=== PATIENT | female | born 1990 | race Caucasian/White ===

== ENCOUNTER 2024-06-15 15:45 | Outpatient (CLI) | payer OTHER, SELFPAY ==
--- NOTE | 2024-06-15 | US_ITS ---
EXAM: BIOPHYSICAL PROF W/O NON STRES (USBIOWO) 06/15/2024 CLINICAL HISTORY: LATE IN OFFICE. Reportedly 31 weeks and 1 day by previously established dates. COMPARISON: None. TECHNIQUE: A limited transabdominal obstetrical ultrasound was performed to determine biophysical profile score. FINDINGS: Gravid uterus with a single fetus. Breathing movement: 2 Gross Body movement: 2 Tone: 2 Qualitative Amniotic Fluid: 2 Amniotic Fluid Index: 13.0 (normal 5-25), deepest vertical pocket 3.5 (normal 2-8). presentation: Cephalic. heart rate: Present, 143 bpm. Placenta: Anterior fundal and not low-lying. US/Biophysical Prof W/O Non Stres IMPRESSION: 1. Biophysical Profile Score of 8 out of a possible 8. 2. Additional description as above. Reading Location: [id number]
[2024-06-15 16:00] VITALS: BMI 41.1
[2024-06-15 16:07] VITALS: BP 115/74; PULSE 96; RESP 16; TEMP 36.6
--- NOTE | 2024-06-15 18:25 | OB.TRI.NOTE ---
HPI - General General Date of Admission: 06/15/24 Date of Service: 06/15/24 Chief Complaint: Non reactive NST in office HPI Narrative PAOLA PEDROZA, is a 34 F who presents from the office. Unable to obtain an adequate HR tracing in office. Sent for [facility] 09/25 Maternal Data Information CONRAD Calculator Estimated Delivery Date Method Current WG Current Estimate 07/30/24 Manual 33w 5d Final CONRAD: 07/30/24 Gestational age: 33+5 PFSH PFSH Home Medications ?Medication ?Instructions ?Recorded ?Last Taken ?Type vit no.95-ferrous 1 tab PO DAILY 06/15/24 06/15/24 09:00 History fumarate 28 mg-folic acid 800 mcg 1 TAB tablet () Allergy/AdvReac Type Severity Reaction Status Date / Time No Known Allergies Allergy Verified 06/15/24 16:01 Assessment & Plan (1) GDM (gestational diabetes mellitus), class A1: (2) Previous section complicating : (3) AMA (advanced maternal age) multigravida 35+: QUALIFIERS: Trimester: third trimester Qualified Code(s): O09.523 - Supervision of elderly multigravida, third trimester (4) 31 weeks gestation of : PLAN: Plan [facility] 09/25
== END 2024-06-15 17:03 | disposition home or self-care (01) ==
LOC: WPOUT 15:53 → WP 15:53
PROVIDERS: Referring Provider Obstetrics & Gynecology; Visit Provider Obstetrics & Gynecology
DX: O09.523 Supervision of elderly multigravida, third trimester (principal); O24.410 Gestational diabetes mellitus in pregnancy, diet controlled; O34.219 Maternal care for unspecified type scar from previous cesarean delivery; Z3A.31 31 weeks gestation of pregnancy
CPT/HCPCS: 59025; 59050; 76819; 99221; G0378

== ENCOUNTER 2024-07-16 21:15 | Outpatient (CLI) | payer OTHER, SELFPAY ==
[2024-07-16 21:32] VITALS: BP 132/87; PULSE 96
[2024-07-16 21:48] VITALS: BP 131/79; PULSE 100
[2024-07-16 22:03] VITALS: BP 129/78; PULSE 93
[2024-07-16 22:17] VITALS: BP 133/84; PULSE 94
--- NOTE | 2024-07-16 22:24 | OB.TRI.NOTE ---
HPI - General General Date of Service: 07/16/24 Chief Complaint: shortness of breath and elevated BP HPI Narrative PAOLA PEDROZA, is a 34 F who presents c/o SOB, noted today. Has with minimal position changes. No cough, fever. At home checked BP 160/90s> Has felt off today. No h/o HTN or preeclampsia w/ previous pregnancies. NO NICHOLS or visual changes. Some epigastric pain but associates it w/ the heartburn she has had. No VB/LOF/ctxs. Some lower abd. pain w/ position changes. Good FM. GDM- reports BS well controlled Maternal Data Information CONRAD Calculator Estimated Delivery Date Method Current WG Current Estimate 07/30/24 Manual 38w 0d Final CONRAD: 08/16/24 Gestational age: 35 4/7 PFSH PFSH Home Medications ?Medication ?Instructions ?Recorded ?Last Taken ?Type vit no.95-ferrous 1 tab PO DAILY 06/15/24 06/15/24 09:00 History fumarate 28 mg-folic acid 800 mcg 1 TAB tablet () Allergy/AdvReac Type Severity Reaction Status Date / Time No Known Allergies Allergy Verified 07/16/24 22:22 Physical Exam Narrative General: Awake alert, appears short of breath with minimal position changes. Takes deep breaths in the middle of the conversation. Skin warm dry and intact Extremities 1+ upper extremity edema, 2+ lower extremity edema, 2+ DTRs no clonus Neuro: Cranial nerves II through XII intact and symmetrical Abdomen: Soft nondistended, gravid no tenderness over fundus, large pannus Assessment & Plan (1) High risk multigravida in third trimester: (2) 35 weeks gestation of : (3) AMA (advanced maternal age) multigravida 35+: QUALIFIERS: Trimester: third trimester Qualified Code(s): O09.523 - Supervision of elderly multigravida, third trimester (4) GDM (gestational diabetes mellitus), class A1: (5) Shortness of breath: (6) Elevated blood pressure affecting in third trimester, antepartum: PLAN: Plan I discussed with the patient and her partner risk benefits and alternatives to CT of the chest to rule out PE. Patient does have significant shortness of breath. This may be due to her habitus and late gestational age in . Could also be due to preeclampsia. Blood pressures are elevated for her but not in the gestational hypertension diagnostic range. Will check preeclampsia labs. Desires to proceed with CT of chest.
--- NOTE | 2024-07-16 22:29 | CT_ITS ---
PROCEDURE: CTA CHEST W/WO CONTRAST 07/16/2024 REASON FOR EXAM: SHORTNESS OF BREATH IN , RULE OUT PE TECHNIQUE: CTA axial imaging of the chest with intravenous contrast. Multiplanar and multisequence images were obtained. PATIENT PREPARATION: Per protocol One or more dose reduction techniques were used (e.g., Automated exposure control, adjustment of the mA and/or kV according to patient size, use of iterative reconstruction technique). RADIATION DOSE SUMMARY: CTDlvol: 16.62+ 15.82 mGy DLP: 582.25 mGycm COMPARISON: None. FINDINGS: Hardware: None. Lymph nodes: Unremarkable. Heart: Unremarkable. Thoracic Aorta: No thoracic aortic aneurysm or dissection. Pulmonary Vessels: No evidence of acute pulmonary emboli through the major subsegmental branches. Most Proximal Level of Embolus (if embolus present): None. Lungs and Airways: Clear. Pleura: No pleural effusion. No pneumothorax. Upper Abdomen: Visualized portions of the upper abdominal viscera are unremarkable. Bones: Bone windows are unremarkable. CT/CTA Chest W/WO Contrast IMPRESSION: NORMAL CHEST CTA. NO EVIDENCE OF ACUTE PULMONARY EMBOLISM. Reading Location: [place] [id number]
[2024-07-16 22:33] VITALS: BP 128/82; PULSE 100
[2024-07-16 22:54] LABS: Hematocrit 34.4 % (37-47); Mean Corp Hgb Conc 34.9 g/dL (32-36); Mean Corpuscular Hgb 31.5 pg (27.0-32.0); Mean Corpuscular Volume 90.3 fL (81-99); Mean Platelet Vol. 10.3 fl (6.2-12.0); Platelet Count 189 K/mm3 (150-450); RBC Distribution Width CV 13.1 % (11.6-14.6); RBC Distribution Width SD 42.8 fl (35.1-43.9); Red Blood Count 3.81 M/mm3 (4.2-5.4); White Blood Count 9.5 K/mm3 (4.4-11.0)
[2024-07-16 23:17] LABS: AST(SGOT) 19 U/L (<=31); Alanine Aminotransfer ALT/SGPT 10 U/L (<=34); Creatinine, Serum 0.51 mg/dL (0.70-1.20); EST Glomerular Filtration Rate 124 (>60)
[2024-07-16 23:54] LABS: Protein, Urine (Random) 10.7 mg/dL (0.0-12.0); Protein:Creat Ratio 156 mg/g CRE (0-200)
[2024-07-17 00:24] VITALS: BP 130/73; PULSE 80; PULSE 88; O2SAT 95
[2024-07-17 00:28] VITALS: PULSE 86; O2SAT 94
[2024-07-17 00:39] VITALS: BP 122/64; PULSE 88
[2024-07-17 00:55] VITALS: BMI 42.7
== END 2024-07-17 00:55 | disposition home or self-care (01) ==
LOC: WPOUT 21:16 → WP 21:16
PROVIDERS: Referring Provider Obstetrics & Gynecology; Visit Provider Obstetrics & Gynecology
DX: O26.893 Other specified pregnancy related conditions, third trimester (principal); R03.0 Elevated blood-pressure reading, without diagnosis of hypertension; R06.02 Shortness of breath; O09.523 Supervision of elderly multigravida, third trimester; O24.410 Gestational diabetes mellitus in pregnancy, diet controlled; Z3A.35 35 weeks gestation of pregnancy
CPT/HCPCS: 36415; 59025; 59050; 71275; 82565; 82570; 84156; 84450; 84460; 84550; 85027; 99221; Q9967; G0378

== ENCOUNTER 2024-08-03 18:15 | Inpatient (IN) | payer OTHER, SELFPAY ==
[2024-08-03] VITALS (21 sets, daily range): BP systolic 113–153; BP diastolic 60–90; PULSE 75–99; RESP 13–18; TEMP 36.3–37.3; O2SAT 91–99; BMI 44.9
[2024-08-03 18:03] LABS: ROM Internal Control Test YES-OK TO RESULT pt. (Internal QC)
[2024-08-03 18:06] LABS: ROM Patient Test POSITIVE (Negative); Record Kit Lot#, ROM+ K3358
[2024-08-03 18:55] LABS: Absolute Lymphocyte Count 1.57 X10^3/uL (0.83-4.51); Basophil# 0.03 X10^3/uL; Basophil% 0.4 % (0-1); Eosinophil# 0.09 X10^3/uL; Eosinophils% 1.1 % (0-5); Hematocrit 34.8 % (37-47); Hemoglobin 12.1 g/dL (12.0-15.0); Lymphocyte # 1.57 X10^3/ul (0.83-4.51); Lymphocyte % 18.7 % (19-41); Mean Corp Hgb Conc 34.8 g/dL (32-36); Mean Corpuscular Hgb 31.4 pg (27.0-32.0); Mean Corpuscular Volume 90.4 fL (81-99); Mean Platelet Vol. 10.2 fl (6.2-12.0); Monocyte# 0.63 X10^3/uL; Monocyte% 7.5 % (0-10); NRBC Flagged by Analyzer 0 % (0-5); Neutrophil # 5.97 X10^3/uL (2.7-7.7); Platelet Count 188 K/mm3 (150-450); RBC Distribution Width CV 13.2 % (11.6-14.6); RBC Distribution Width SD 43.2 fl (35.1-43.9); Red Blood Count 3.85 M/mm3 (4.2-5.4); White Blood Count 8.4 K/mm3 (4.4-11.0)
--- NOTE | 2024-08-03 19:00 | PCM.HP.OB ---
HPI - General General Date of Admission: 08/03/24 Date of Service: 08/03/24 Chief Complaint: SROM HPI Narrative PAOLA PEDROZA, is a 34 F who presents with SROM at home. No ctx, vb. Good FM. Maternal Data Information CONRAD Calculator Estimated Delivery Date Method Current WG Current Estimate 07/30/24 Manual 40w 4d PFSH PFSH Home Medications ?Medication ?Instructions ?Recorded ?Last Taken ?Type vit no.95-ferrous 1 tab PO DAILY 06/15/24 06/15/24 09:00 History fumarate 28 mg-folic acid 800 mcg 1 TAB tablet () Allergy/AdvReac Type Severity Reaction Status Date / Time No Known Allergies Allergy Verified 08/03/24 18:19 History Addt'l History: Delivery 2013 cord prolapse Delivery 2015 Vital Signs Vital Signs Vital Signs: 08/03/24 17:38 08/03/24 17:38 08/03/24 17:39 Pulse Rate 99 94 Blood Pressure 136/81 H BP Systolic 136 BP Diastolic 81 Pulse Ox 08/03/24 17:39 08/03/24 17:44 08/03/24 17:44 Pulse Rate 94 Blood Pressure BP Systolic BP Diastolic Pulse Ox 98 97 08/03/24 17:49 08/03/24 17:49 08/03/24 17:54 Pulse Rate 91 92 Blood Pressure BP Systolic BP Diastolic Pulse Ox 97 08/03/24 17:54 08/03/24 17:59 08/03/24 17:59 Pulse Rate 86 Blood Pressure BP Systolic BP Diastolic Pulse Ox 97 97 Weight Weight: 270 lb Body Mass Index (BMI) 44.9 Labs Labs Labs: Blood Type Pending Antibody Screen Pending Hct 34.8 % (37-47) L Hgb 12.1 g/dL (12.0-15.0) Syphilis Total Ab Pending GBS negative Assessment & Plan (1) 38 weeks gestation of : (2) GDM (gestational diabetes mellitus), class A1: PLAN: Diabetic protocol (3) Anxiety: (4) History of section: (5) History of : (6) Liver fibrosis: PLAN: Patient reports being told she has non alcoholic fatty liver disease and stage 2 liver fibrosis in the past. Saw a GI specialist in [place] 3 years ago. She states she has no records available of this. Per patient her levels improved after being on Ozempic. Will check CMP and coags on admission (7) Advanced maternal age (AMA) in : (8) SROM (spontaneous rupture of membranes): PLAN: Admit for SROM. H/o 1 prior C/S for cord prolapse and 1 successful 10 years ago. Discussed r/b/a TOLAC vs repeat C/S and patient desires TOLAC. Discussed Pitocin which the patient declines. Discussed risk of infection if prolonged rupture of membranes without labor. GBS negative. Cvx 3 cm on admission per RN. CEFM and admit for labor
[2024-08-03 19:21] LABS: Syphilis Antibodies Nonreactive (Nonreactive)
[2024-08-03 20:48] LABS: International Normalized Ratio 0.9; Partial Thromboplast Time 25.3 Seconds (24.1-36.2); Prothrombin Time (Protime)PT. 12.3 SECONDS (11.7-14.9)
[2024-08-03 21:25] LABS: ALB/GLOB Ratio 1.1 RATIO (0.9-2.4); AST(SGOT) 23 U/L (<=31); Alanine Aminotransfer ALT/SGPT 13 U/L (<=34); Albumin, Serum 3.5 g/dL (3.5-5.0); Alkaline Phosphatase 120 U/L (35-104); Anion Gap 14 (5-15); BUN 10 mg/dL (4-19); BUN/Creat Ratio 14.6 RATIO (10-20); Calcium,Total 9.6 mg/dL (7.6-11.0); Carbon Dioxide 18.4 mmol/L (21.0-32.0); Chloride 103 mmol/L (98-108); Creatinine, Serum 0.71 mg/dL (0.70-1.20); EST Glomerular Filtration Rate 112 (>60); Estimated Creatinine Clearance 143.85 ml/min (50-250); Globulin 3.2 g/dL (2.2-4.2); Glucose 105 mg/dL (70-99); Protein, Total 6.7 g/dL (5.9-8.4); Sodium Level 135 mmol/L (133-145); Total Bilirubin < 0.15 mg/dL (0.00-1.30)
[2024-08-03 21:54] LABS: Bedside Glucose 73 mg/dL (74-106)
[2024-08-03 21:54] LABS: Bedside Glucose 89 mg/dL (74-106)
[2024-08-03] MEDS: Lactated Ringers 1,000 ML 999 ML IV (22:45)
[2024-08-03 23:07] LABS: Bedside Glucose 80 mg/dL (74-106)
[2024-08-03] MEDS: fentaNYL-bupivacaine (epidural) 100 ML BAG EPIDURAL (23:43)
[2024-08-03] MEDS: Lactated Ringers 1,000 ML 50 ML IV (23:57)
[2024-08-04] VITALS (30 sets, daily range): BP systolic 101–140; BP diastolic 56–88; PULSE 68–126; RESP 16–18; TEMP 36.1–36.9; O2SAT 92–100
--- NOTE | 2024-08-04 02:50 | PCM.PN.BLA ---
Progress Note At bedside to check on patient. RN at bedside and patient receiving IVF bolus, and in hands and knees. Patient states she has been comfortable with epidural. She offers no complaints. Assessment & Plan Assessment/Plan (1) SROM (spontaneous rupture of membranes): (2) Advanced maternal age (AMA) in : (3) Liver fibrosis: (4) History of : (5) History of section: (6) Anxiety: (7) 38 weeks gestation of : (8) Non-reassuring heart rate or rhythm affecting management of mother: PLAN: FHT showing intermittent late and variable decelerations during labor. FHT then with an approximately 5 minute deceleration followed by variable and late decelerations. FHT deceleration 54 bpm while in the room. FHT now recovered to baseline 120 with mod gregorio. Patient has been declining internal monitoring during entire admission. Cervical exam now 5/60/-2. Discussed with patient non reassuring heart rate tracing and remote from delivery. Recommend section. Patient needed time to consider after discussion of r/b/a repeat section. All questions were answered and she felt well counseled. After discussion of risks, benefits and alternatives to a section the patient request to proceed with a repeat section. Pre op antibiotics ordered and patient prepped for OR.
[2024-08-04] MEDS: Cefazolin 3 GM in 0.9% Normal Saline (100mL Bag) 100 ML IV (03:13)
[2024-08-04] MEDS: Azithromycin 500 MG in 0.9% Normal Saline (250mL Bag) 250 ML 250 MG IV (03:17)
--- NOTE | 2024-08-04 04:35 | PLAC_PTH ---
PATIENT: PAOLA PEDROZA LOC: [facility] U#:[id number] AGE/SX: 34/F ROOM: [facility] RE08/03/[address]: Dr. Roxy Marx DO : 1990 BED: 1 DIS: 08/06/2024 SPEC #: [id number] RECD: 08/04/24 06:25 STATUS: NALINI CHAD #: [id number] JUAN: 08/04/24 04:[address]: Roxy Marx DEPT: SURGICAL PATHOLOGY RECD BY: Jah Zimmerman ENTERED: 08/04/24 09:08 SP TYPE: PLACENTA OT DR: No Primary Care Phys Tissues: A - Placenta, NOS Procedures: Surgery Specimen Level V HEADER OPERATION: Primary section PRE-OP DIAGNOSIS: distress TISSUE SUBMITTED: A- Placenta MICROSCOPIC DIAGNOSIS A. Placenta, primary Cesarian section: * Eccentrically inserted and trivascular umbilical cord without active inflammation * Marginally inserted membranes with an increased number of pigmented macrophages, consistent with meconium and without active inflammation * Mature (third trimester) placenta with an increased number of pigmented macrophages in the surface, consistent with meconium and without active inflammation MICROSCOPIC DESCRIPTION Slides are reviewed. GROSS DESCRIPTION A.? Received in formalin labeled with the patient's name and date of is a 259 g, 13.4 x 12.7 x 2.1 cm slightly irregular, ovoid placental disc.? The detached membranes are andrade-pink and edematous with green discoloration. The possibly tethered (0.7 cm from the surface), trivascular and hypocoiled umbilical cord measures 47.6 cm in length by approximately 1.0 cm in diameter and inserts eccentrically, 1.6 cm from the disc edge.? The surface is pink-purple to blue and edematous with detached amnion (approximately 95%).? The maternal surface is dark red with a diffusely torn and frayed appearance and loosely adherent blood clot along the periphery. Sectioning reveals dark red-brown, shaggy and spongy parenchyma with focal fibrin (<10%). ?[place]erson sections are submitted as follows: A1: Membrane rollA2: Umbilical cordA3: PlacentaA4: Placenta with fibrin SC 08/05/2024 CPT:02288
--- NOTE | 2024-08-04 04:37 | PCM.OPRPT ---
Problems Associated Problem List Diagnoses (1) Non-reassuring heart rate or rhythm affecting management of mother: (2) SROM (spontaneous rupture of membranes): (3) Advanced maternal age (AMA) in : (4) Liver fibrosis: (5) History of : (6) History of section: (7) Anxiety: (8) 38 weeks gestation of : Operative Report (Standard) Operative Information Date of Procedure: 08/04/24 Pre-Operative Diagnosis: 38 week gestation, SROM, history 1 prior section, AMA, obesity in , non reassuring heart tracing Post-Operative Diagnosis: As above Surgery/Procedure Performed: RLTCS via pfannenstiel incision wealth management manager: Yes Shade Cloth Finisher: Ainsley BAKER Tasks completed by perinatal breastfeeding assistant: Closing and Retracting Type of Anesthesia: Epidural Procedure Start Time: 03:19 Procedure Stop Time: 04:30 Select all DRAINS/GRAFTS/IMPLANTS that apply: None Special Medications: None Estimated Blood Loss: 1200 mL Fluids Replaced: 2500 mL Specimen collected: Yes Description of specimen(s) removed: Placenta Description of surgery: The patient was taken to the operating room where epidural anesthesia was found to be adequate. She was prepped and draped in the dorsal supine position with a leftward tilt. A Pfannenstiel skin incision was made with a scalpel through the prior incision site, and the incision was carried down to the underlying layer of fascia. The fascia was incised in the midline. The fascial incision was extended laterally using curved Elaine scissors. The fascia was tented off the rectus muscles both cephalad and caudad and dissected off the rectus muscles with a combination of blunt and sharp dissection. The fascia was dense and adherent to the rectus muscles. There was scarring in the midline of the rectus muscles. Nivia clamps were used to elevate the rectus muscles and a scalpel was used to create a small incision to separate the rectus muscles. The peritoneum was then identified. The peritoneum was then elevated using the Nivia clamps, and entered sharply using the scalpel. The peritoneal incision was extended with lateral traction, and the peritoneum was noted to be dense. The bowel was packed away from the incision site. A low transverse incision was made on the uterus with the scalpel. The uterine incision was extended with cephalad and caudad traction with meconium stained fluid noted. The head of the infant was elevated out of the pelvis in a flexed position, and the head and body of the infant were delivered through the hysterotomy. The cord was clamped and cut immediately and the viable male infant was handed off to the awaiting nursery staff. The uterus had clamped down. The placenta was delivered with manual extraction and was noted to be small appearing therefore sent to pathology for review. The uterus was cleared of all clot and debris. The uterus was unable to be exteriorized due to body habitus. Visibility was difficult due to body habitus and scarring/tight tissue, therefore an Florentin retractor was placed and the bowel re packed away from the incision site. A right cervical extension was noted to be bleeding. Ring forceps were placed along the extension and hysterotomy. 1-0 Vicryl was used to repair the hysterotomy along with the cervical extension in a running locked fashion. Several additional [id number] sutures were placed along the hysterotomy for hemostasis. The cervical extension was noted to be oozing. Hemablast was placed over the cervical extension and pressure applied. Hemostasis was then confirmed. The packing was removed and the Florentin retractor was removed. Rome was placed over the lower uterine segment and hysterotomy. The peritoneum was unable to be reapproximated. The subfascial space was noted to be hemostatic. The fascia was closed with STRATAFIX in a running fashion. The subcutaneous space was irrigated and noted to be hemostatic. The subcutaneous space was reapproximated with 3-0 Vicryl in a running fashion. The skin was closed with 4-0 Monocryl in a subcuticular fashion. A dressing was placed. Instrument, sharp, sponge counts were correct x 2 the patient was taken to the recovery in stable condition. Surgical Findings: Meconium stained fluid. Small appearing placenta and baby SGA. Apgars 8, 9. Adhesive disease noted of fascia, rectus, and peritoneum. Normal appearing uterus and bilateral adnexa. Complications Complications: No Admit VTE Documentation VTE Present on Admission: No VTE Mechan Device Prophylaxis: SCD's
[2024-08-04] MEDS: Oxytocin 15 Units/NS 250ml 15 UNITS/250 ML IV.SOLN 83 UNITS IV (05:00)
[2024-08-04 06:08] LABS: Bedside Glucose 123 mg/dL (74-106)
[2024-08-04] MEDS: 0.9% Saline Lock 10 ML Syringe IV (06:14)
[2024-08-04] MEDS: Ketorolac 30 MG/ML Syringe IV ×3 (06:15→18:31)
[2024-08-04 06:27] LABS: Pathology Specimen OB SEE PATHOLOGY REPORT
[2024-08-04] MEDS: Acetaminophen 500 MG Tablet 1000 MG PO ×3 (06:43→18:31)
[2024-08-04] MEDS: Lactated Ringers 1,000 ML 100 ML IV (07:12)
[2024-08-04] MEDS: Cefazolin 1 GM/50 ML BAG IV (07:12)
--- NOTE | 2024-08-04 09:35 | NURSING ---
2163 dr kong made aware of maternal heart rate 108-115 and fundus sitting one above umbilicus
--- NOTE | 2024-08-04 10:02 | PCM.PN.BLA ---
Progress Note pain well controlled, denies CP/SOB/lightheadednss. Physical Exam Narrative abd soft, nondistended, appropriately tender, bandage clean, dry an intact. Uterus below umbilicus 2 cm if pannus pulled up during exam. Did brief transabdominal US and bright white endometrial stripe noted pad w/ average lochia, no clots expressed w/ fundal massage Assessment & Plan Assessment/Plan (1) delivery delivered: PLAN: POD#0 s/p repeat c/s for nonreassuring FHTs, IUGR repeat cbc tomorrow routine care
[2024-08-04] MEDS: Senna/Docusate Sodium 1 Tablet PO (12:31)
[2024-08-04] MEDS: Enoxaparin 40 MG/0.4 ML Syringe SC (17:01)
--- NOTE | 2024-08-04 18:29 | NURSING ---
[address] kong made aware of maternal tachycardia 125-135 orders received
[2024-08-04] MEDS: Lactated Ringers 1,000 ML 999 ML IV (18:42)
[2024-08-04 18:54] LABS: Hematocrit 26.5 % (37-47); Hemoglobin 9.1 g/dL (12.0-15.0); Mean Corp Hgb Conc 34.3 g/dL (32-36); Mean Corpuscular Hgb 31.6 pg (27.0-32.0); Mean Platelet Vol. 10.2 fl (6.2-12.0); Platelet Count 145 K/mm3 (150-450); RBC Distribution Width CV 13.6 % (11.6-14.6); RBC Distribution Width SD 44.6 fl (35.1-43.9); Red Blood Count 2.88 M/mm3 (4.2-5.4); White Blood Count 10.3 K/mm3 (4.4-11.0)
--- NOTE | 2024-08-04 19:49 | PCM.PN.BLA ---
Progress Note Pain well controlled. Denies CP/SOB. Average lochia. Physical Exam Narrative skin warm, dry and intact abd- soft- mild distention, appropriately tender, no rebound or guarding. Fundus firm, same as this am. Difficult exam due to pannus size. Bandage clean, dry and intact. Pad w/ moderate dark red lochia, minimal blood expressed w/ fundal massage. Brief Tvus and transabdominal US done, technically difficult due to pannus size but I do see a bright white endometrial stripe and when I examine the cervix minimal blood returns, no clots appreciated. Assessment & Plan Assessment/Plan (1) delivery delivered: PLAN: Plan tachycardia- HGB decreased,a ppropriate for blood loss in surgery but some tachycardia. Monitor closely. Recheck CBC in am or later if further changes. Given 500 cc IVF bolus. Urine output borderline. Monitor closely. At this point if PP hemorrhage I am more concerned may be intraperitoneal than uterine atony/collection. Findings/concerns reviewed with patient and her . Cont. IVF and ramírez tonight and monitor closely.
--- NOTE | 2024-08-04 20:01 | NURSING ---
1930 Dr. Dickerson in room to perform vaginal ultrasound to check for bleeding. Dr. Dickerson sates to leave ramírez catheter in overnight, draw a CBC in the morning, call if heart rate gets worse or if urine output is low. This RN verbalized understanding.
[2024-08-04] MEDS: Famotidine 20 MG Tablet 40 MG PO (21:36)
[2024-08-05] VITALS (16 sets, daily range): BP systolic 106–129; BP diastolic 58–80; PULSE 104–122; RESP 16; TEMP 36.1–36.8; O2SAT 95–99
[2024-08-05] MEDS: Acetaminophen 500 MG Tablet 1000 MG PO ×4 (00:11→20:31)
[2024-08-05] MEDS: Ketorolac 30 MG/ML Syringe IV (00:30)
[2024-08-05] MEDS: Enoxaparin 40 MG/0.4 ML Syringe SC ×2 (03:34→15:45)
[2024-08-05] MEDS: Ibuprofen 600 MG Tablet PO ×3 (06:02→20:30)
[2024-08-05 06:21] LABS: Hematocrit 21.5 % (37-47); Hemoglobin 7.4 g/dL (12.0-15.0); Mean Corp Hgb Conc 34.4 g/dL (32-36); Mean Corpuscular Hgb 31.9 pg (27.0-32.0); Mean Corpuscular Volume 92.7 fL (81-99); Mean Platelet Vol. 10.1 fl (6.2-12.0); Platelet Count 125 K/mm3 (150-450); RBC Distribution Width CV 13.7 % (11.6-14.6); RBC Distribution Width SD 45.8 fl (35.1-43.9); Red Blood Count 2.32 M/mm3 (4.2-5.4); White Blood Count 8.9 K/mm3 (4.4-11.0)
[2024-08-05 06:39] LABS: Bedside Glucose 107 mg/dL (74-106)
[2024-08-05] MEDS: DiphenhydrAMINE 25 MG Capsule 50 MG PO (06:58)
--- NOTE | 2024-08-05 09:10 | PCM.PN.OB ---
Subjective Subjective Doing well per patient and nursing staff. Ambulating and taking PO without difficulty. Voiding and passing flatus. Pain controlled. , services for assistance. Denies headache, visual changes, chest pain, shortness of breath, leg pain or increased bleeding. Lochia normal. Objective Data Objective Data Vital Signs: Vital Signs Temp Pulse Resp BP Pulse Ox O2 Del Method 97.9 F 115 H 16 118/72 97 Room Air 08/05/24 08:48 08/05/24 08:48 08/05/24 08:48 08/05/24 08:48 08/05/24 08:48 08/05/24 08:48 Oxygen Delivery Method Room Air Weight: 270 lb Body Mass Index (BMI) 44.9 Intake & Output: Intake and Output for Last 24 Hours 08/03/24 08/04/24 08/05/24 23:59 23:59 23:59 Intake Total 1000 / 1000 2626.99 / 2626.99 500.5 / 500.5 Output Total 2400 / 2400 1350 / 1350 Balance 1000 / 1000 226.99 / 226.99 -849.5 / -849.5 Lab / Micro Data 08/05/24 16:51 08/03/24 20:00 Labs: Laboratory Results - last 24 hr 08/03/24 18:40: Crossmatch See Detail 08/04/24 18:45: WBC 10.3, RBC 2.88 L, Hgb 9.1 L, Hct 26.5 L, MCV 92.0, MCH 31.6, MCHC 34.3, RDW Std Deviation 44.6 H, RDW Coeff of Sanjay 13.6, Plt Count 145 L, MPV 10.2 08/05/24 06:05: POC Glucose 107 H 08/05/24 06:09: WBC 8.9, RBC 2.32 L, Hgb 7.4 L, Hct 21.5 L, MCV 92.7, MCH 31.9, MCHC 34.4, RDW Std Deviation 45.8 H, RDW Coeff of Sanjay 13.7, Plt Count 125 L, MPV 10.1 ROS Constitutional Constitutional: Reports systems reviewed and no addt'l complaints, except as documented; Denies headache(s) Eyes Eyes: Denies acute decrease in peripheral vision, blurry vision or change in vision ENT HEENT: Reports systems reviewed and no addt'l complaints, except as documented Cardiovascular Cardiovascular: Denies chest pain or dizziness Respiratory/Chest Respiratory/Chest: Denies cough, dyspnea, dyspnea on exertion, shortness of breath at rest or shortness of breath with exertion Gastrointestinal Gastrointestinal: Denies abdominal pain, diarrhea, nausea or vomiting Genitourinary Genitourinary: Denies abdominal discomfort Musculoskeletal Musculoskeletal: Denies limited range of motion Integumentary Integumentary: Reports systems reviewed and no addt'l complaints, except as documented Neurologic Neurologic: Reports systems reviewed and no addt'l complaints, except as documented Psychiatric Psychiatric: Reports systems reviewed and no addt'l complaints, except as documented Endocrine Endocrinology: Reports systems reviewed and no addt'l complaints, except as documented Hematologic/Lymphatic Hematologic/Lymphatic: Reports systems reviewed and no addt'l complaints, except as documented Allergic/Immunologic Allergic/Immunologic: Reports systems reviewed and no addt'l complaints, except as documented Physical Exam Const alert and oriented x3 General Appearance: cooperative Orientation / Consciousness: awake, oriented to person, oriented to place and oriented to time Exam Limitations: no limitations HEENT normocephalic Head and Scalp: normal to inspection, normocephalic and atraumatic Face and Sinus: normal facial exam Eyes General Eye: normal appearance of both eyes Neck full ROM Chest Chest: symmetrical chest wall rise Resp normal respiratory effort and normal air movement Auscultation: clear to auscultation bilaterally Cardio regular rate, regular rhythm, S1 normal heart sound, S2 normal heart sound, no murmurs, no rub, no gallops and no clicks GI normal to inspection, nondistended, normoactive bowel sounds and non-tender GI Narrative: Fundus firm 2 below U appearance of the vagina normal Narrative: Normal lochia rubra Bladder / Kidney Exam: no CVA tenderness Back/Spine normal ROM Extremity normal to inspection and full ROM Skin no rashes or lesions noted Neuro oriented x3, CN's II-XII intact bilaterally and moves all extremities Sensorium / Orientation: awake, alert and oriented to person Motor Exam: clonus absent Deep Tendon Reflexes: Rt Patellar (L4): 2+ and Lt Patellar (L4): 2+ Assessment & Plan (1) delivery delivered: (2) Elevated blood pressure affecting in third trimester, antepartum: (3) AMA (advanced maternal age) multigravida 35+: QUALIFIERS: Trimester: third trimester Qualified Code(s): O09.523 - Supervision of elderly multigravida, third trimester PLAN: Plan 1) Routine care, PPD #2 2) Vitals signs stable 3) Pain controlled 4) , services PRN 5) D/C home 6) Follow up for Bp check 7) Follow up in 2 weeks and 6 weeks
[2024-08-05] MEDS: Famotidine 20 MG Tablet 40 MG PO ×2 (11:53→20:30)
[2024-08-05] MEDS: Senna/Docusate Sodium 1 Tablet PO (11:53)
--- NOTE | 2024-08-05 14:41 | CASEMGMT ---
Social Work Assessment Labor and Delivery Unit Patient Address: [address] [facility] ([facility] [place] [address] Phone number: [phone] Date of Referral: 08/04/24 Time of Referral:? 742 Referred By: Roxy Marx Date of Intervention: ?08/05/24? Time of Intervention:? 1114 Reason for Referral:? Mental health Sw completed chart review and acknowledges social work consult due to maternal mental health history. Sw presented to bedside and met with mother of baby (MARCELINA Velazco). Sw explained reason for sw involvement and completed psychosocial assessment. History obtained from: medical records, MOB Household composition: Currently residing in the family home is MOB, father of baby (ELOISA Victor), their two older children: Suleiman (12) and Payton (10). baby to be included in residence when ready for discharge. MOB denies any problems with housing, stating their house is safe and secure. Patient's parent/guardian status:? ?MOB states that she and PAULA have been together for 12 years after meeting each other online. [place] baby is third baby for parents together. MOB denies problems or concerns with domestic violence or intimate partner violence. Medical History: ?GREG is 34 year old female who is 4, para 2- now 3 following labor and delivery. GREG received routine care during with [facility]. GREG presented to hospital and delivered baby via repeat at 38 weeks gestation. Baby boy, named Jayesh Norwood, was born weighing 5lb and 15oz with apgars of 8 and 9 at one and five minutes of life, respectfully. GREG is pumping and providing milk for her baby, and states that baby will be followed by Dr. Dey for pediatrics. Educational Status:? Both parents graduated from high school and attended some college. MOB denies problems with reading, learning or comprehension. Financial Status: Neither parent is employed at this time. MOB states that PAULA is retired from the and they are living off of his benefits. Supplies:?? All necessary baby supplies obtained, including: car seat, safe sleep space, clothes, diapers and wipes. Childcare/Caregiver(s):?MOB states that she will be the primary caregiver to baby, along with FOB. Transportation:??Both parents have their drivers license and reliable means of transportation. NO barriers. Programs/Agencies Involved: ???MOB denies being connected to community resources that assist her financially. MOB is connected to insurance provided to the family through [employer] benefits of [facility]. Children Services/Legal Issues:???MOB denies prior involvement with Children's Services, no issues or concerns warranting referral to be made at this time. Behavioral Health Issues: ??Mental Health History: MOB admits to having anxiety, and states that it is general mom stuff. MOB elaborates and states that currently they are in the process of switching schools for the kids to go to, and that has been an overwhelming process. GREG denies experiencing any baby blues or symptoms following her other two deliveries, as well as denies requiring medication to help assist with her mental health symptoms. ??? Substance Use History:?MOB denies substance use prior to and during . ? Family History:?MOB denies family history of substance use or significant mental health diagnoses. ? Drug Screens: No drug screens observed while completing chart review. ?? Family/Social Stressors:?Currently MOB denies problems, concerns or stressors. Support Systems: FOB Depression/Shaken Baby/Safe Sleeping:? Sw educated MOB on signs and symptoms of baby blues and depression and anxiety. Sw asked if FOB would be able to recognize if MOB is struggling during this period, and MOB states that he would. MOB states that he would know how to help and support her. At this time MOB states that she feels a connection to baby, and denies feeling down, anxious or sad. Sw educated MOB on shaken baby prevention and ABCs of safe sleep, MOB states always. ASSESSMENT:? MOB and baby admitted following labor and delivery of . Sw knocked on door and entered room, MOB observed laying comfortably in bed, with baby laying across her leg. Upon entrance to the room, it appeared as though MOB had been sleeping. MOB stated okay to meet with social work, and was initially engaging in conversation. MOB was alert and answering questions however she would now make eye contact with sw. At one point in conversation, MOB just closed her eyes and did not answer question. Sw repeated question and MOB then awoke and asked sw to repeat question. Sw asked MOB if she would like sw to place baby in the bedside basinet so that she could take a nap. MOB stated no that she is going to try to pump and syringe feed baby. Sw reiterated importance of safe sleep, and placing baby in safe space when MOB is sleeping, MOB expressed understanding. Sw informed bedside RN of concern that MOB was sleeping with baby in bed with her. PLAN:? No other services requested or indicated. MOB and baby to be discharged when medically ready. Parents were provided literature regarding: signs and symptoms of baby blues and mood and anxiety disorders, Help Me Grow, shaken baby prevention, ABCs of safe sleep and a list of [facility] resources that are available for them should any needs present themselves. Lana Rubio, [employer], PUBLICATION MANAGER
[2024-08-05] MEDS: oxyCODONE 5 MG Tablet PO (15:45)
[2024-08-05 17:05] LABS: Absolute Lymphocyte Count 0.92 X10^3/uL (0.83-4.51); Absolute Neutrophil Count 6.8 X10^3/uL (2.0-7.7); Basophil# 0.02 X10^3/uL; Basophil% 0.2 % (0-1); Eosinophil# 0.12 X10^3/uL; Eosinophils% 1.4 % (0-5); Hematocrit 25.6 % (37-47); Hemoglobin 8.8 g/dL (12.0-15.0); Lymphocyte # 0.92 X10^3/ul (0.83-4.51); Lymphocyte % 10.6 % (19-41); Mean Corp Hgb Conc 34.4 g/dL (32-36); Mean Corpuscular Hgb 31.3 pg (27.0-32.0); Mean Corpuscular Volume 91.1 fL (81-99); Mean Platelet Vol. 10.4 fl (6.2-12.0); Monocyte# 0.66 X10^3/uL; Monocyte% 7.6 % (0-10); NRBC Flagged by Analyzer 0 % (0-5); Platelet Count 131 K/mm3 (150-450); RBC Distribution Width SD 46.5 fl (35.1-43.9); Red Blood Count 2.81 M/mm3 (4.2-5.4); White Blood Count 8.7 K/mm3 (4.4-11.0)
--- NOTE | 2024-08-05 17:22 | NURSING ---
This RN removed urinary catheter at this time
[2024-08-06 02:26] VITALS: BP 117/75; PULSE 102; RESP 16; TEMP 36.4; O2SAT 97
[2024-08-06] MEDS: Ibuprofen 600 MG Tablet PO ×3 (02:33→14:38)
[2024-08-06] MEDS: Enoxaparin 40 MG/0.4 ML Syringe SC (02:33)
[2024-08-06] MEDS: Acetaminophen 500 MG Tablet 1000 MG PO ×3 (02:33→14:38)
--- NOTE | 2024-08-06 07:57 | PCM.DC.SUM ---
Providers Date of Admission: 08/03/24 Primary Care Physician: No Primary Care Phys Reason For Visit: C SECTION Diagnosis Discharge Diagnosis (1) delivery delivered: Status: Acute Code(s): O82 - Encounter for delivery without indication Medications at Discharge Home Medications vit no.95-ferrous fumarate 28 mg-folic acid 800 mcg tablet () 1 tab PO DAILY pregnacy 06/15/24 famotidine 40 mg tablet (Pepcid) 40 mg PO DAILY 08/03/24 acetaminophen 500 mg tablet 1,000 mg (2 x 500 mg) PO Q6 #0 tabs 08/06/24 ferrous sulfate 325 mg (65 mg iron) tablet (FeroSul) 325 mg PO 1200,1700 #0 tabs 08/06/24 ibuprofen 600 mg tablet 600 mg PO Q6H #0 tabs 08/06/24 oxycodone 5 mg tablet 5 - 10 mg (1 - 2 x 5 mg) PO Q4H PRN PRN Pain Score 4-10 3 days #14 tabs 08/06/24 sennosides 8.6 mg-docusate sodium 50 mg tablet (Stimulant Laxative Plus) 1 - 2 tab PO DAILY #0 tabs 08/06/24 Hospital Course Operations section Procedures None Summary of Care Provided Minutes Spent on Discharge: 15 Hospital Course: Patient had section. Hospital course was uneventful. Physical Exam Narrative Patient seen at bedside. Denies headache, SOB, or CP. Ambulating and voiding without difficulty. Lochia decreased. Dressing is dry and intact. Desires discharge home later today. Infant under lights in room at this time. Const alert and no apparent distress General Appearance: cooperative and comfortable Exam Limitations: no limitations HEENT normocephalic Eyes General Eye: normal appearance of both eyes Neck full ROM General: normal visual inspection Chest Chest: symmetrical chest wall rise Resp normal respiratory effort and normal air movement Effort and Inspection: symmetric chest movement Auscultation: clear to auscultation bilaterally Cardio regular rate and regular rhythm GI normal to inspection, nondistended, normoactive bowel sounds Back/Spine normal ROM Extremity full ROM and no calf tenderness General Extremity: normal exam except as noted Skin no rashes or lesions noted Wound Narrative: Dressing is dry and intact. Neuro CN's II-XII intact bilaterally Psych mental status grossly normal Weight / BMI Weight Weight: 270 lb Body Mass Index (BMI) 44.9 ABG / Lab / Microbiology Data 08/05/24 16:51 08/03/24 20:00 Laboratory: Laboratory Results - last 24 hr 08/03/24 18:40: Crossmatch See Detail 08/05/24 16:51: WBC 8.7, RBC 2.81 L, Hgb 8.8 L, Hct 25.6 L, MCV 91.1, MCH 31.3, MCHC 34.4, RDW Std Deviation 46.5 H, RDW Coeff of Sanjay 14.0, Plt Count 131 L, MPV 10.4, Immature Gran % (Auto) 2.200 H, Neut % (Auto) 78.0 H, Lymph % (Auto) 10.6 L, [place] % (Auto) 7.6, Eos % (Auto) 1.4, Baso % (Auto) 0.2, Absolute Neuts (auto) 6.8, Absolute Lymphs (auto) 0.92, Nucleated RBC % 0 D/C Instructions Discharge Diet: No restrictions Discharge Activity: May Drive (2 weeks) and May Shower May resume sexual activity in: 6-8 weeks Weight Bearing Status: Weight bearing as tolerated Lifting Restricted to (Lbs): 25 Call your doctor if your incision/area has: Continuous Slow Oozing, Sudden Increased Bleeding, Increased Pain/ Swelling, Increased Redness, Foul Smelling Discharge and Swelling at the incision site Call your doctor if you observe: Fever of 101 or Higher, Numbness or Tingling, Using more than 1 pad per hour, Shortness of breath, Dizziness, Swelling in the ankles, Chest pain, Calf discomfort and Uncontrolled pain Suture Line Care: Avoid Pulling/Pushing Remove Dressing in: 5 days (Remove yourself or call office and schedule appointment for dressing removal.) DC O2, CPAP, BIPAP Needs Home O2 Discharge instructions: No When: 5 days for dressing removal or 2 weeks for post appointment. Meaningful Use Info Meaningful Use Meaningful Use Diagnoses (Choose all that apply): None applicable Ischemic Stroke Statin Dosing Therapy Reference: STATIN DOSE THERAPY REFERENCE: * Patients > 75 years receive moderate or high dose statin therapy. * Patients 75 years or YOUNGER should receive HIGH intensity statin dose unless contraindicated. You will be required to document reason for non-treatment if statin daily dose does not meet guidelines. HIGH DOSE STATIN THERAPY DAILY Atorvastatin > than or = to 40 mg Rosuvastatin > than or = to 20 mg Amlodipine + Atorvastatin > than or = to 2.5/40 mg Ezetimibe + Simvastatin 10/80 mg Simvastatin 80mg Discharge Plan Admission Admit Date/Time: 08/03/24 18:15 Primary Reason for Your Visit: Labor and Delivery Attending Provider: Roxy Marx Primary Care Provider: Care Physician,Naida Primary Discharge Orders/Prescriptions Prescriptions: New sennosides-docusate sodium [Stimulant Laxative Plus] 8.6-50 mg Tablet 1 - 2 tab PO DAILY Qty: 0 0RF acetaminophen 500 mg Tablet 1,000 mg PO Q6 Qty: 0 0RF ibuprofen 600 mg Tablet 600 mg PO Q6H Qty: 0 0RF ferrous sulfate [FeroSul] 325 mg (65 mg iron) Tablet 325 mg PO 1200,1700 Qty: 0 0RF oxycodone 5 mg Tablet 5 - 10 mg PO Q4H PRN PRN (Reason: Pain Score 4-10) 3 Days Qty: 14 0RF Continued PNV cmb#95-ferrous fumarate-FA [] 28 mg iron- 800 mcg tablet 1 tab PO DAILY No Action famotidine [Pepcid] 40 mg tablet 40 mg PO DAILY Referrals / Follow Up: Care Physician,No Primary [Primary Care Provider] - Disposition Disposition (needs filled in before D/C Order can be placed): Home, Self Care
[2024-08-06 08:53] VITALS: BP 129/75; PULSE 104; RESP 18; TEMP 36.4; O2SAT 98
[2024-08-06] MEDS: Ferrous Sulfate 325 MG Tablet PO (14:37)
[2024-08-06 14:50] VITALS: BP 130/78; PULSE 110; RESP 18; TEMP 36.6; O2SAT 97
== END 2024-08-06 15:35 | disposition home or self-care (01) | DRG 787 ==
LOC: WPOUT 18:23 → WP 18:23
PROVIDERS: Advanced Practice Midwife; Obstetrics & Gynecology; Admitting Provider Obstetrics & Gynecology; Referring Provider Obstetrics & Gynecology; Visit Provider Obstetrics & Gynecology
DX: O34.211 Maternal care for low transverse scar from previous cesarean delivery (principal); O26.62 Liver and biliary tract disorders in childbirth; K76.0 Fatty (change of) liver, not elsewhere classified; O24.420 Gestational diabetes mellitus in childbirth, diet controlled; O99.214 Obesity complicating childbirth; F41.9 Anxiety disorder, unspecified; K74.01 Hepatic fibrosis, early fibrosis; O99.62 Diseases of the digestive system complicating childbirth; O77.0 Labor and delivery complicated by meconium in amniotic fluid; O76 Abnormality in fetal heart rate and rhythm complicating labor and delivery; Z37.0 Single live birth; O99.344 Other mental disorders complicating childbirth; O42.92 Full-term premature rupture of membranes, unspecified as to length of time between rupture and onset of labor; O36.5930 Maternal care for other known or suspected poor fetal growth, third trimester, not applicable or unspecified; O99.893 Other specified diseases and conditions complicating puerperium; R00.0 Tachycardia, unspecified; Z3A.38 38 weeks gestation of pregnancy; Z87.59 Personal history of other complications of pregnancy, childbirth and the puerperium
CPT/HCPCS: 36415; 59025; 59050; 80053; 82962; 84112; 85025; 85027; 85610; 85730; 86780; 86850; 86900; 86901; 88307; 99221; P9016; A4216; G0378; J2405